=== PATIENT | female | born 1995 | race Caucasian/White ===

== ENCOUNTER 2016-08-16 16:25 | Emergency (ER) | payer BC, SELFPAY ==
[~2016-08-16] VITALS: Ht 175.3 cm; Wt 88.9 kg
[2016-08-16] MEDS ORDERED: TYLE325T5 PO (16:38)
[2016-08-16] MEDS ORDERED: NAPR500T2 PO (16:38)
[2016-08-16] MEDS ORDERED: ONDANSETRON 4 MG ORAL DISINTEGRATING TAB (S0181) PO ONE (17:00)
[2016-08-16] MEDS ORDERED: MORPHINE 4 MG/ML 1ML SYRINGE SQ ONE (17:00)
--- NOTE | 2016-08-16 18:01 | REP ---
Right TIB-fib series: Two views. History: Trauma. Findings: Two views of the mid and proximal TIB-fib show no additional tibial or fibular fracture. Ankle fractures as described in the ankle series. Impression: No proximal TIB-fib fracture seen. Signed by Frankie Frank MD 08/16/2016 06:29 P
--- NOTE | 2016-08-16 18:02 | REP ---
Right ankle series: Four views: History: Trauma. Findings: Four views of the right ankle demonstrate a obliquely oriented fracture through the distal fibular diaphysis. No significant displacement is seen. However, the medial aspect of the ankle more mortise is widened. There is a tiny wafer of bone adjacent to the medial malleolus suggesting a chip fracture. A tiny chip fracture is suspected in the widened ankle mortise as well. There are two accessory ossicles adjacent to the distal fibula. These appear old. Impression: Oblique fracture distal fibular diaphysis. Medial ankle mortise widening. Avulsion chip fracture along the medial malleolus. Signed by Frankie Frank MD 08/16/2016 06:29 P
[2016-08-16] MEDS ORDERED: NORCOTAB PO (18:39)
[2016-08-16] MEDS ORDERED: CODE60TA2 PO (18:39)
[2016-08-16] MEDS ORDERED: NORCO 5/325MG TABLET (BULK FOR ED) PO ONE (18:45)
[2016-08-16 19:17] VITALS: BP 124/74
== END 2016-08-16 19:18 | disposition home or self-care (01) ==
LOC: M ED 17:48
DX: S82.434A Nondisplaced oblique fracture of shaft of right fibula, initial encounter for closed fracture (principal); S82.54XA Nondisplaced fracture of medial malleolus of right tibia, initial encounter for closed fracture; W21.9XXA Striking against or struck by unspecified sports equipment, initial encounter; Y92.830 Public park as the place of occurrence of the external cause; Y93.79 Activity, other specified sports and athletics; Y99.8 Other external cause status; Z88.0 Allergy status to penicillin; Z88.1 Allergy status to other antibiotic agents